=== PATIENT | male | born 1970 | race Hispanic/Latino ===

== ENCOUNTER 2019-01-14 21:14 | Emergency (ER) | payer BC ==
[~2019-01-14] VITALS: Ht 167.6 cm; Wt 68.0 kg
[2019-01-14] MEDS ORDERED: TETANUS/DIPHTHERIA TOX ADULT 0.5 ML SYR IM ONE (21:30)
[2019-01-14] MEDS ORDERED: HYDROCODONE/APAP 10MG-325MG TAB PO ONE (21:30)
[2019-01-14] MEDS ORDERED: LIDOCAINE HCL 1% LOCAL INJ 20 ML VIAL INJ ONE (21:30)
[2019-01-14] MEDS ORDERED: CEFAZOLIN SOD 1 GM VIAL IM ONE (21:30)
[2019-01-14] MEDS ORDERED: NEOMYCIN/POLYMYX/BACITR OINT 0.9 GM PKT ONE (22:54)
--- NOTE | 2019-01-14 23:08 | NUR ---
WOUND CLOSED PER VIVIANA SUMMERS. NEOSPORIN OINTMENT, ADAPTIC DRESSING, 4X4 GAUZE, COBAN, FINGER SPLINT. TOLERATED WELL. AWAKE ALERT SKIN W/D RESP NONLAB. NAD NOTED.
--- NOTE | 2019-01-15 00:29 | Diagnostic Imaging Report ---
Right fifth finger - 3 views HISTORY: Pain. COMPARISON: None available. FINDINGS: Bones: Minimally displaced fifth digit distal tuft fracture Osseous alignment is within normal limits. Joints: The joint spaces are well-maintained. Soft tissues: Soft tissue thickening and irregularity of the distal aspect of the fifth digit. IMPRESSION: Acute minimally displaced digit distal tuft fracture and overlying soft tissue injury. Signed by: Alfredo Esparza DO on 01/15/2019 12:26 AM
== END 2019-01-14 23:10 | disposition home or self-care (01) ==
LOC: ER 21:14
DX: S62.666B Nondisplaced fracture of distal phalanx of right little finger, initial encounter for open fracture (principal); S67.196A Crushing injury of right little finger, initial encounter; W22.8XXA Striking against or struck by other objects, initial encounter; Y92.008 Other place in unspecified non-institutional (private) residence as the place of occurrence of the external cause; I10 Essential (primary) hypertension
CPT/HCPCS: 12001; 73140; 90471; 90714; 99283; J0690; J2001

== ENCOUNTER 2019-11-02 21:24 | Emergency (ER) | payer BC ==
[~2019-11-02] VITALS: Ht 167.6 cm; Wt 113.4 kg
--- OUTSIDE RECORDS SUMMARY | 2019-11-02 21:27 | XMS REPORT ---
Author Author [facility] t Organization [facility] Address [address] [place] [id number] Phone Unavailable Care Team Providers Care Coordinator Integrated Marketing Name Role Phone NO, PCP PCP Unavailable Anabela KOCH Attphys Unavailable Problems This patient has no known problems. Allergies, Adverse Reactions, Alerts This patient has no known allergies or adverse reactions. Medications This patient has no known medications. Procedures This patient has no known procedures. Encounters Start Date/Time End Date/Time Encounter Type Admission Type [facility] Care Department Encounter ID Source 2019-01-14 21:14:00 2019-01-14 23:10:00 Departed Emergency Room 1 [facility] [id number] [facility] Results Test Description Test Time Test Comments Results Result Comments Source FINGER RIGHT 2019-01-15 00:24:00 [facility] [address], [place] [address] Patient Name: NASH FRENCH III MR #: [id number] : 1970 Age/Sex: 48/M Req #: [id number] Adm Physician: Ordered by: KRISTOPHER GALLEGO [employer]LECT[employer]HICLE [employer]LECT[employer]ICIAN Report #: [id number] Location: ER Room/Bed: Procedure: [id number] DX/FINGER RIGHT Exam Date: 01/14/19 Exam Time: 2210 REPORT STATUS: Signed Right fifth finger - 3 views HISTORY: Pain. COMPARISON: None available. FINDINGS: Bones: Minimally displaced fifth digit distal tuft fracture Osseous alignment is within normal limits. Joints: The joint spaces are well-maintained. Soft tissues: Soft tissue thickening and irregularity of the distal aspect of the fifth digit. IMPRESSION: Acute minimally displaced digit distal tuft fracture and overlying soft tissue injury. Signed by: Alfredo Esparza DO on 01/15/2019 12:26 AM Dictated By: ALFREDO ESPARZA DO Transcribed By: SHELDON on [birth year]1925 COPY TO: KRISTOPHER GALLEGO NP
[2019-11-02] MEDS ORDERED: AUGMENTIN 875-1 EACH PO (21:55)
[2019-11-02 21:56] VITALS: BP 132/85
--- NOTE | 2019-11-02 22:07 | Emergency Department Note ---
History of Present Illnes History of Present Illness Chief Complaint: Extremity Trauma/Pain History of Present Illness This is a 49 year old male with 1 week history of rt third digit finger swelling, pt states he notices a "bump" and used a cuticle cleaner touch up worker to "drain" it. Pt states he was not able to extract everything out. Pt denies any pain, no fever, no chills, no numbness to the digits. Chief Complaint Comment 49 Y/O MALE PT A&OX3 PRESENTS TO THE ER C/O RT MIDDLE FINGER SWELLING X1 WEEK; PT STATES ON SATURDAY HE USED DRAINED HIS FINGER AND HAD PUSS DRAINAGE AND FOUL ODOR; SWELLING NOTED RT MIDDLE FINGER; NO DRAINAGE NOTED AT THIS TIME; PT DENIES FEVER/CHILLS, N/V/D; NAD NOTED AT THIS TIME; RESP EVEN/UNLABORED; DR. MCKNIGHT IN TRIAGE FOR INITIAL EVAL. Historian: Patient Arrival Mode: Car Onset quality: gradual Duration (how long): week(s) Timing of current episode: constant Progression: worsening Chronicity: new Context: trauma/injury Relieving factors: none Exacerbating factors: none Associated symptoms: denies other symptoms Treatments prior to arrival: none Past Medical/Family History Physician Review I have reviewed the patient's past medical and family history. Any updates have been documented here. Past Medical History Recent Fever: No Clinical Suspicion of Infectio: No New/Unexplained Change in Ment: No Past Medical History: Hypertension Past Surgical History: None Social History Smoking Cessation: Former smoker Alcohol Use: Social Any Illegal Drug Use: No Physically hurt or threatened: No Other Last Tetanus: UTD Review of Systems Review of Systems Constitutional: no symptoms EENTM: no symptoms Cardiovascular: no symptoms Respiratory: no symptoms Gastrointestinal: no symptoms Genitourinary: no symptoms Musculoskeletal: no symptoms, joint swelling, other (finger swelling ) Neurological: no symptoms Psychological: no symptoms Endocrine: no symptoms Hematological/Lymphatic: no symptoms Review of other systems All other systems reviewed and negative. Physical Exam Related Data Allergies: Coded Allergies: No Known Allergies (Unverified , 01/14/19) Triage Vital Signs Vital Signs Date Time Temp Pulse Resp B/P (MAP) Pulse Ox O2 Delivery O2 Flow Rate FiO2 11/02/19 21:47 98.8 77 20 132/85 96 Vital signs reviewed: Yes Physical Exam CONSTITUTIONAL Constitutional: well-developed, well-nourished HENT HENT: normocephalic, atraumatic, oropharynx clear/moist, nose normal HENT L/R: left ext ear normal, right ext ear normal EYES Eyes: PERRL, conjunctivae normal NECK Neck: ROM normal PULMONARY Pulmonary: effort normal, breath sounds normal CARDIOVASCULAR Cardiovascular: regular rhythm, heart sounds normal, capillary refill normal, normal rate GASTROINTESTINAL Abdominal: soft, nontender, bowel sounds normal GENITOURINARY Genitourinary: exam deferred SKIN Skin: warm, dry, other (ulceration noted over lateral aspect of 3rd digit nail bed, no active discharge, no palpable abscess, no cellulitis, normal hand drip, compartments soft ) MUSCULOSKELETAL Musculoskeletal: ROM normal, swelling, other (swelling noted over lateral aspect of 3rd digit, no palpable abscess, no active discharge- no cellulitis, compartments soft, full ROM); tenderness NEUROLOGICAL Neurological: alert, oriented x 3, no gross motor or sensory deficits PSYCHOLOGICAL Psychological: mood/affect normal, judgement normal Critical Care Time Subsequent provider I assumed direction of critical care for this patient from another provider of my specialty. Assessment & Plan Assessment & Plan Problems: (1) Paronychia Assessment & Plan spontaneous drainage occurred at home, no indications for I&D at this time Pt not a diabetic -instructed to perform iodine soaks every 6 hrs, antibiotics and hand surgery f/u given Depart Disposition: HOME, SELF-CARE Last Vital Signs Date Time Temp Pulse Resp B/P (MAP) Pulse Ox O2 Delivery O2 Flow Rate FiO2 11/02/19 21:47 98.8 77 20 132/85 96 Home Meds Active Scripts Amoxicillin/Potassium Clav (AUGMENTIN 875-125 TABLET) 1 Each Tablet, 875 MG PO DAILY for 10 Days, #10 TAB Prov:DEVON MCKNIGHT DO 11/02/19 DEVON MCKNIGHT DO November 02, 2019 22:07
== END 2019-11-02 22:06 | disposition home or self-care (01) ==
LOC: ER 21:24
DX: L03.011 Cellulitis of right finger (principal)
CPT/HCPCS: 99282